=== PATIENT | male | born 1965 | race Caucasian/White ===

== ENCOUNTER 2017-03-03 15:28 | Emergency (ER) | payer OTHER ==
[~2017-03-03] VITALS: Ht 167.6 cm; Wt 68.0 kg
--- NOTE | ~2017-03-03 | CR72 ---
[facility] A Service of [facility] RADIOLOGY TEXT RESULTS PATIENT: RONAL DENNY LOCATION: [facility] : 65 UNIT #: [id number] AGE: [address]: Quique Butcher MD SEX: M ORDER DR: [id number] [facility] [address] [place], [place] [address] [id number] E MR#: [id number] Acc #: [id number] NAME: RONAL DENNY : 1965 SEX: M STUDY DATE/TIME: 03/03/2017 16:26 UNIT: [facility] ROOM: STUDY DESCRIPTION: CR Chest Single View Portable Attending Physician: Quique Butcher M.D. Ordering Physician: Quique Butcher M.D. MEDICAL IMAGING REPORT This report is preliminary unless electronic signature is present EXAM Portable chest, 03/03/2017 HISTORY 51-year-old male with shortness of air and heroin overdose today. Essential hypertension. Smoker. COMPARISON None. FINDINGS Frontal chest demonstrates clear lungs. No pleural effusion or pneumothorax. Heart size and mediastinum are normal. Pulmonary vasculature normal. IMPRESSION No acute cardiopulmonary findings. Dictated by... Leo Serrano M.D. THIS IS AN ELECTRONICALLY VERIFIED REPORT Leo Serrano M.D. at 03/04/2017 1:21 PM SUSHILA/jeevan TD: 03/03/2017 21:50 JOB #: [id number] MEDICAL IMAGING REPORT Page 1 of 1 COPY
== END 2017-03-03 17:55 | disposition home or self-care (01) ==
LOC: CED 15:28
DX: T40.1X1A Poisoning by heroin, accidental (unintentional), initial encounter (principal); I10 Essential (primary) hypertension; F17.200 Nicotine dependence, unspecified, uncomplicated
CPT/HCPCS: 71010; 99284